=== PATIENT | female | born 1960 | race Hispanic/Latino ===

== ENCOUNTER 2016-10-16 15:03 | Emergency (ER) | payer BC ==
[2016-10-16 15:08] VITALS: BP 133/78; PULSE 73; RESP 18; TEMP 97.3; O2SAT 99
[2016-10-16] MEDS ORDERED: TDAP Vaccine 0.5 mL Syr IM ONE (15:26)
--- NOTE | 2016-10-16 16:05 | ED PDOC ---
HPI: Wound Care - HPI Time Seen by Provider: 10/16/16 15:21 Chief Complaint (Nursing): Abnormal Skin Integrity Chief Complaint (Provider): Facial Injury History Per: Patient Exam Limitations: no limitations Onset/Duration Of Symptoms: Hrs Additional Complaint(s): 15:21 Corie Aleman is a 56 year old female that presents to the ED with a chief complaint of a facial injury that she sustained when she was at the store earlier today, missed a step, and fell directly onto her face. Patient reports tat she sustained nasal injury with bleeding from the right nare, nasal congestion post-injury, and laceration to inner upper lip without any loss of teeth or injury to tongue. She denies any loss of consciousness, headache, dizziness, numbness, tingling, change in gait, neck pain, or vision changes. Tetanus vaccination not UTD. PMD: Kermit Matamoros Past Medical History Reviewed: Historical Data, Nursing Documentation, Vital Signs Vital Signs: Last Vital Signs Temp 97.3 F L 10/16/16 15:05 Pulse 73 10/16/16 15:05 Resp 18 10/16/16 15:05 BP 133/78 10/16/16 15:05 Pulse Ox 99 10/16/16 15:05 - Family History Family History: States: Unknown Family Hx - Immunization History Hx Tetanus Toxoid Vaccination: No - Home Medications Home Medications: Ambulatory Orders Medication Instructions Recorded Amoxicillin/Clavulanate [Augmentin 1 tab PO BID #14 tab 10/16/16 875 MG-125 MG] Sertraline [Zoloft] 150 mg PO DAILY 10/16/16 traZODone [Desyrel] 10/16/16 - Allergies Allergies/Adverse Reactions: Allergies Allergy/AdvReac Type Severity Reaction Status Date / Time minocycline Allergy ANAPHYLAXIS Verified 10/16/16 15:05 Review of Systems Eyes: Negative for: Vision Change ENT: Positive for: Nose Pain (nasal injury with bleeding from right nare), Nose Congestion (post-injury), Mouth Pain Musculoskeletal: Negative for: Neck Pain Neurological: Negative for: Numbness, Headache, Dizziness, Other (no LOC, no tingling, no change in gait) Physical Exam - Reviewed Nursing Documentation Reviewed: Yes Vital Signs Reviewed: Yes - Physical Exam Appears: Positive for: Non-toxic, No Acute Distress Head Exam: Positive for: ATRAUMATIC, NORMOCEPHALIC Skin: Positive for: Normal Color, Warm Eye Exam: Negative for: Other (negative hyphema, negative subconjuctival hemorrhaging) ENT: Positive for: Normal ENT Inspection (no TMJ tenderness, no jawline tenderness, no maxillary or frontal sinus tenderness, no orbital step off or tenderness. no ecchymosis around orbit. ), Sinus Pain/Drainage (Nasal swelling and congestion with no obvious deformity. Abrasion noted to bridge of the nose, clogged blood noted in right nare. Negative for septal hematoma. ), Other ( laceration to inner upper lip at upper lip frenulum -wide without any loss of teeth or tongue injury. dentition in good condition.) Neck: Positive for: Normal, Painless ROM Cardiovascular/Chest: Positive for: Regular Rate, Rhythm. Negative for: Murmur Respiratory: Positive for: Normal Breath Sounds. Negative for: Wheezing Extremity: Positive for: Normal ROM Neurologic/Psych: Positive for: Alert, hogshead dumper II-XII, Oriented, Gait (steady). Negative for: Motor/Sensory Deficits - ECG O2 Sat by Pulse Oximetry: 99 (RA) Pulse Ox Interpretation: Normal Procedure: Wound Repair - Time Out Time Out: Side verified, Site verified, Patient ID confirmed, Sterile procedures obs. - Procedure Procedure: Wound Repair: Laceration Repair to Inner Upper Lip - Consent Obtained Consent obtained: Verbal - Performed by Performed by: Mid-level Provider - Indications Indication(s):: Laceration - Location Location:: Lip Shape:: Linear Dimensions Length cm: 3 Depth:: Epidermis (@frenulum) - Anesthetic Technique Anesthetic Technique: Regional block (submental) Local/Regional Anesthetic:: Lidocaine 1% (w/o epi, 3 ccs) - Irrigated Irrigated with ml of normal saline: 250 - Complexity Complexity:: Intermediate (2 layer) - Wound repair method Sutures:: # (5), Size (5:0), Type (absorbable sutures) - Patient tolerated procedure Patient Tolerated Procedure:: Well Medical Decision Making Medical Decision Makin:15 Initial Impression: Laceration to Inner Upper Lip Initial Plan: * Laceration Repair-aborsbable sutures used advised to not drink hot/cold/ acidic foods and f/u with dental * Reevaluation 16:04 Patient tolerated procedure well. Patient given Tetanus booster in ED, and will be discharged home with Rx for Keflex. Advised to apply ice to nose and follow up with plastic surgeon if needed. Scribe Attestation: Documented by Eleanor Parkinson, acting as a scribe for Amanda Mary PA-C. Provider Scribe Attestation: All medical record entries made by the Scribe were at my direction and personally dictated by me. I have reviewed the chart and agree that the record accurately reflects my personal performance of the history, physical exam, medical decision making, and the department course for this patient. I have also personally directed, reviewed, and agree with the discharge instructions and disposition Disposition - Clinical Impression Clinical Impression: Facial injury, Laceration of buccal mucosa, Nasal injury - Patient ED Disposition Is Patient to be Admitted: No Counseled Patient/Family Regarding: Studies Performed, Diagnosis, Need For Followup, Rx Given - Disposition Referrals: Kolby Kessler MD [Staff Provider] - Disposition: Routine/Home Disposition Time: 16:04 Condition: STABLE Prescriptions: Amoxicillin/Clavulanate [Augmentin 875 MG-125 MG] 1 tab PO BID #14 tab Instructions: Care For Your Absorbable Stitches (ED), Facial Laceration (ED)
== END 2016-10-16 16:18 | disposition home or self-care (01) ==
LOC: MERGE 15:03 → H.ER 15:03
DX: S01.512A Laceration without foreign body of oral cavity, initial encounter (principal); S09.92XA Unspecified injury of nose, initial encounter; W19.XXXA Unspecified fall, initial encounter; Y92.512 Supermarket, store or market as the place of occurrence of the external cause

== ENCOUNTER 2018-07-17 17:54 | Emergency (ER) | payer BC ==
[2018-07-17] MEDS ORDERED: Sodium Chloride 0.9% 1,000 ML IV STA (18:58)
--- NOTE | 2018-07-17 19:20 | ED PDOC ---
HPI: Abdomen Time Seen by Provider: 07/17/18 18:48 Chief Complaint (Nursing): GI Problem Chief Complaint (Provider): GI Problem History Per: Patient History/Exam Limitations: no limitations Onset/Duration Of Symptoms: Days Current Symptoms Are (Timing): Still Present Additional Complaint(s): 58 y/o female with a PMHx of Depression presents to the ED for evaluation of m yalgia and a tactile fever at a Tmax 100, onset earlier today. Patient states myalgia and fever are associated with nausea, 15 episodes of non-bloody vomiting and an unknown amount of diarrhea. Patient reports symptoms initially began with abdominal pain but has since resolved. Patient additionally reports of feeling weak and dehydrated. Otherwise, patient denies melena, hematemesis, cough, congestion, sore throat, rash, sick contacts and recent travel. PMD: none provided Past Medical History Reviewed: Historical Data, Nursing Documentation, Vital Signs Vital Signs: Last Vital Signs Temp 98.8 F 07/17/18 18:21 Pulse 102 H 07/17/18 18:21 Resp 18 07/17/18 18:21 BP 116/79 07/17/18 18:21 Pulse Ox 99 07/17/18 18:21 - Medical History PMH: Depression, Fractures (left arm) Denies: Diabetes, Hepatitis, HIV, HTN, Chronic Kidney Disease, Seizures, Sexually Transmitted Disease - Surgical History Surgical History: No Surg Hx - Family History Family History: States: Unknown Family Hx - Immunization History Hx Tetanus Toxoid Vaccination: No - Home Medications Home Medications: Ambulatory Orders Medication Instructions Recorded Alprazolam [Xanax] 0.5 mg PO BID PRN 11/19/15 buPROPion XL [Wellbutrin XL] 300 mg PO DAILY 11/19/15 Amoxicillin/Clavulanate [Augmentin 1 tab PO BID #14 tab 10/16/16 875 MG-125 MG] Sertraline [Zoloft] 150 mg PO DAILY 10/16/16 traZODone [Desyrel] 10/16/16 - Allergies Allergies/Adverse Reactions: Allergies Allergy/AdvReac Type Severity Reaction Status Date / Time minocycline Allergy Intermediate SWELLING Verified 11/19/15 16:47 Review of Systems ROS Statement: Except As Marked, All Systems Reviewed And Found Negative Constitutional: Positive for: Fever, Weakness, Other (myalgia and dehydration) ENT: Negative for: Nose Congestion, Throat Pain Respiratory: Negative for: Cough Gastrointestinal: Positive for: Nausea, Vomiting, Abdominal Pain, Diarrhea. Negative for: Melena, Hematemesis Skin: Negative for: Rash Physical Exam - Reviewed Nursing Documentation Reviewed: Yes Vital Signs Reviewed: Yes - Physical Exam Appears: Positive for: No Acute Distress Head Exam: Positive for: ATRAUMATIC, NORMOCEPHALIC Skin: Positive for: Normal Color, Warm, Dry. Negative for: Rash Eye Exam: Positive for: Normal appearance, EOMI, PERRL ENT: Positive for: Other (Dry Mucous Membranes) Neck: Positive for: Normal, Painless ROM Cardiovascular/Chest: Positive for: Regular Rate, Rhythm. Negative for: Tachycardia Respiratory: Positive for: Normal Breath Sounds. Negative for: Respiratory Distress Gastrointestinal/Abdominal: Positive for: Normal Exam, Soft. Negative for: Tenderness Back: Positive for: Normal Inspection. Negative for: L CVA Tenderness, R CVA Te nderness Extremity: Positive for: Normal ROM. Negative for: Deformity Neurologic/Psych: Positive for: Alert, Oriented. Negative for: Motor/Sensory D eficits - Laboratory Results Result Diagrams: 07/17/18 18:49 07/17/18 18:49 - ECG O2 Sat by Pulse Oximetry: 99 (RA) Pulse Ox Interpretation: Normal Medical Decision Making Medical Decision Making: Time: 1857 Plan: -- VBG -- CMP -- Lipase -- CBC with Differentials -- Sodium Chloride 0.9% IV 1000 mls/hr -- Pepcid 20 mg IVP -- Zofran Inj 8 mg IVP -- Blood Culture -- Urine C&S -- IV Insertion -- Influenza A B -- Urinalysis 2009 On re-evaluation, pt. reports symptoms have improved but is still nauseous. Further states also having a gradual onset, atraumatic headache that also began today which has also improved but is still present. Repeat neuro exam is non- focal. Abd remains soft and non-tender. Reglan 10mg IVPB, benadryl 50mg IVP ordered. ____ Scribe Attestation: Documented by Shayna South, acting as a scribe for Kirt Gannon PA-C. Provider Scribe Attestation: All medical record entries made by the Scribe were at my direction and personally dictated by me. I have reviewed the chart and agree that the record accurately reflects my personal performance of the history, physical exam, medical decision making, and the department course for this patient. I have also personally directed, reviewed, and agree with the discharge instructions and disposition. Disposition - Clinical Impression Clinical Impression: Vomiting, Diarrhea - Patient ED Disposition Is Patient to be Admitted: Transfer of Care (Signed out to Ashley BRITTON pending re-evaluation and final disposition.) - Disposition Disposition Time: 20:21 Condition: STABLE Forms: [employer] (Croatian)
[2018-07-17 19:26] LABS: VENOUS BLOOD GAS BASE EXCESS 2.5 mmol/L (0.0-2.0); VENOUS BLOOD GAS PCO2 45 mmHg (40-60); VENOUS BLOOD GAS PO2 24 mm/Hg (30-55)
[2018-07-17 19:59] LABS: BASO % 0.3 % (0.0-2.0); EOS % 0.1 % (0.0-4.0); HEMOGLOBIN 13.9 g/dL (12.0-16.0); LYMPH # 0.3 K/uL (1.0-4.3); LYMPH % 4.4 % (20.0-40.0); MEAN CELL VOLUME 90.1 fl (81.0-99.0); MEAN CORPUSCULAR HEMOGLOBIN 30.7 pg (27.0-31.0); MEAN CORPUSCULAR HGB CONC 34.1 g/dL (33.0-37.0); MEAN PLATELET VOLUME 8.4 fl (7.2-11.7); MONO # 0.3 K/uL (0.0-0.8); NEUT # 6.9 K/uL (1.8-7.0); NEUT % 91.2 % (50.0-75.0); NRBC % 0.1 % (0.0-0.0); PLATELET COUNT 224 K/uL (130-400); RBC 4.54 Mil/uL (3.80-5.20); RED CELL DISTRIBUTION WIDTH 13.3 % (11.5-14.5); WHITE BLOOD COUNT 7.6 K/uL (4.8-10.8)
[2018-07-17 20:03] LABS: URINE AMORPHOUS SEDIMENT RARE /ul (<OCC); URINE BACTERIA RARE (<OCC); URINE BILIRUBIN NEGATIVE (NEGATIVE); URINE BLOOD NEGATIVE (NEGATIVE); URINE COLOR YELLOW (YELLOW); URINE GLUCOSE (UA) NEG (NEGATIVE); URINE LEUKOCYTE ESTERASE NEG Leu/uL (Negative); URINE PROTEIN 30 mg/dL (NEGATIVE); URINE UROBILINOGEN 0.2-1.0 mg/dL (0.2-1.0)
[2018-07-17 20:05] LABS: ALB/GLOB RATIO 1.4 (1.0-2.1); ALBUMIN 4.4 g/dL (3.5-5.0); ALT/SGPT 34 U/L (9-52); AST/SGOT 34 U/L (14-36); BLOOD UREA NITROGEN 19 mg/dl (7-17); GFR NON-AFRICAN AMERICAN > 60; LIPASE 49 U/L (23-300)
[2018-07-17] MEDS ORDERED: DiphenhydrAMINE 50 mg/ml Inj IVP STA (20:11)
[2018-07-17] MEDS ORDERED: DiphenhydrAMINE 50 mg/ml Inj ONE (20:15)
[2018-07-17 20:29] LABS: URINE CLARITY CLOUDY (Clear)
--- NOTE | 2018-07-17 20:31 | ED PDOC ---
- Laboratory Results Result Diagrams: 07/17/18 18:49 07/17/18 18:49 - ECG O2 Sat by Pulse Oximetry: 99 (RA) Pulse Ox Interpretation: Normal Medical Decision Making Medical Decision Making: Case endorsed to typewriter operator automatic, Ashley BRITTON, at 2019 due to shift change. Pertinent details reviewed. Patient pending re-evaluation and further disposition. 2134 Patient sleeping comfortably on re-evaluation. 2299 Patient sleeping comfortably on re-evaluation. 2349 On re-evaluation, patient reports improvement of symptoms and resolution of nausea/vomiting. On exam, patient remains AAOx3, in no acute distress. Lungs clear to auscultation, cardiac RRR, abdomen soft, non-tender, repeat neuro exam shows no focal findings. Vitals stable. Fluids and BRAT diet encouraged. Lab/Diagnostic results d/w the patient in great detail. Diagnosis of vomiting, diarrhea, gastroenteritis d/w the patient. Based on history, exam and diagnostic results, plan will be for outpatient follow up with PMD. Patient instructed to follow-up with pmd / referral provided / the clinic in 1- 2 days without fail. Advised to take medication as prescribed. Return to the [facility] room at any time for any new or worsening symptoms. Patient states she fully agrees with and understands discharge instructions. States that she agrees with the plan and disposition. Verbalized and repeated discharge instructions and plan. I have given the patient opportunity to ask any additional questions. Disposition Counseled Patient/Family Regarding: Studies Performed, Diagnosis, Need For Followup, Rx Given - Clinical Impression Clinical Impression: Vomiting, Diarrhea, Gastroenteritis - POA Present On Arrival: None - Disposition Referrals: Kermit Matamoros MD [Family Provider] - Disposition: Routine/Home Disposition Time: 23:55 Condition: STABLE Additional Instructions: The emergency medical care you received today was directed at your acute symptoms. If you were prescribed any medication, please fill it and take as directed. It may take several days for your symptoms to resolve. Return to the Emergency Department if your symptoms worsen, do not improve, or if you have any other problems. Please contact your doctor in 2 days for re-evaluation and follow up / or call one of the physicians/clinics you have been referred to that are listed on the Patient Visit Information form that is included in your discharge packet. Bring any paperwork you were given at discharge with you along with any medications you are taking to your follow up visit. Our treatment cannot replace ongoing medical care by a primary care provider (PCP) outside of the emergency department. Prescriptions: Dicyclomine [Bentyl] 10 mg PO QID PRN #12 cap PRN Reason: Diarrhea Ondansetron ODT [Zofran ODT] 8 mg PO Q8 PRN #12 odt PRN Reason: Nausea/Vomiting Instructions: Diarrhea in Adolescents and Adults, [place] Diet, Nausea and Vomiting, Adult, Viral Gastroenteritis, Adult (DC) Forms: [employer] ([employer]) Print Language: TURKISH Results - Lab Results Lab Results: 07/17/18 07/17/18 07/17/18 19:20 19:00 19:00 WBC RBC Hgb Hct MCV MCH MCHC RDW Plt Count MPV Neut % (Auto) Lymph % (Auto) [place] % (Auto) Eos % (Auto) Baso % (Auto) Neut # (Auto) Lymph # (Auto) [place] # (Auto) Eos # (Auto) Baso # (Auto) Neutrophils % (Manual) Lymphocytes % (Manual) Monocytes % (Manual) Platelet Estimate pO2 24 L VBG pH 7.40 VBG pCO2 45 VBG HCO3 25.4 VBG Total CO2 29.3 H VBG O2 Sat (Calc) 48.7 VBG Base Excess 2.5 H VBG Potassium 3.5 L Glucose 118 H Lactate 1.0 FiO2 21.0 Sodium 137.0 Potassium Chloride 102.0 Carbon Dioxide Anion Gap BUN Creatinine Est GFR ( Amer) Est GFR (Non-Af Amer) Random Glucose Calcium Total Bilirubin AST ALT Alkaline Phosphatase Total Protein Albumin Globulin Albumin/Globulin Ratio Lipase Venous Blood Potassium 3.5 L Urine Color Yellow Urine Clarity Cloudy Urine pH 5.0 Ur Specific [place] 1.032 H Urine Protein 30 Urine Glucose (UA) Neg Urine Ketones Negative Urine Blood Negative Urine Nitrate Negative Urine Bilirubin Negative Urine Urobilinogen 0.2-1.0 Ur Leukocyte Esterase Neg Urine RBC (Auto) 2 Urine Microscopic WBC 4 Amorphous Sediment Rare H Urine Bacteria Rare Influenza Typ A,B (EIA) Negative for flu a/b 07/17/18 07/17/18 18:49 18:49 WBC 7.6 RBC 4.54 Hgb 13.9 Hct 40.9 MCV 90.1 MCH 30.7 MCHC 34.1 RDW 13.3 Plt Count 224 MPV 8.4 Neut % (Auto) 91.2 H Lymph % (Auto) 4.4 L [place] % (Auto) 4.0 Eos % (Auto) 0.1 Baso % (Auto) 0.3 Neut # (Auto) 6.9 Lymph # (Auto) 0.3 L [place] # (Auto) 0.3 Eos # (Auto) 0.0 Baso # (Auto) 0.0 Neutrophils % (Manual) Pending Lymphocytes % (Manual) Pending Monocytes % (Manual) Pending Platelet Estimate Pending pO2 VBG pH VBG pCO2 VBG HCO3 VBG Total CO2 VBG O2 Sat (Calc) VBG Base Excess VBG Potassium Glucose Lactate FiO2 Sodium 139 Potassium 3.6 Chloride 104 Carbon Dioxide 27 Anion Gap 12 BUN 19 H Creatinine 0.7 Est GFR ( Amer) > 60 Est GFR (Non-Af Amer) > 60 Random Glucose 119 H Calcium 9.0 Total Bilirubin 0.6 AST 34 ALT 34 Alkaline Phosphatase 77 Total Protein 7.5 Albumin 4.4 Globulin 3.1 Albumin/Globulin Ratio 1.4 Lipase 49 Venous Blood Potassium Urine Color Urine Clarity Urine pH Ur Specific [place] Urine Protein Urine Glucose (UA) Urine Ketones Urine Blood Urine Nitrate Urine Bilirubin Urine Urobilinogen Ur Leukocyte Esterase Urine RBC (Auto) Urine Microscopic WBC Amorphous Sediment Urine Bacteria Influenza Typ A,B (EIA)
[2018-07-17 20:56] LABS: BANDS 2 % (0-2); LARGE PLATELETS PRESENT; LYMPHOCYTE 6 % (20-50); MONOCYTE 3 % (0-10); NEUTROPHIL 89 % (42-75); PLATELET ESTIMATE NORMAL (NORMAL); TOTAL CELLS COUNTED 100
[2018-07-18 00:48] VITALS: BP 128/89; PULSE 88; RESP 16; TEMP 98.2
[2018-07-20 23:13] VITALS: O2SAT 99
== END 2018-07-18 00:10 | disposition home or self-care (01) ==
LOC: H.ER 17:54
DX: R11.10 Vomiting, unspecified (principal); R19.7 Diarrhea, unspecified; Z86.59 Personal history of other mental and behavioral disorders; K52.9 Noninfective gastroenteritis and colitis, unspecified
CPT/HCPCS: 80053; 81003; 82803; 83690; 85025; 87040; 87086; 87804; 96374; 96375; 99285; J1200; J2405; J2765; J7030